=== PATIENT | female | born 1945 | race Hispanic/Latino ===

== ENCOUNTER 2019-03-24 14:11 | Observation (INO) | payer OTHER, MEDICARE ==
[~2019-03-24] VITALS: Ht 157.5 cm; Wt 108.8 kg
[~2019-03-24 14:11] MED LIST: ALEN70TA10 PO; ALPR-410 PO; CIPR-278 PO; CLON0.5T23 PO; RIVA15TA PO; SIMV-43 PO; VENL50TA PO
[2019-03-24 14:55] LABS: BASOPHILS % (AUTO) 0.3 % (0.0-5.0); EOSINOPHILS % (AUTO) 1.8 % (0.0-8.0); HEMATOCRIT 41.3 % (36-48); LYMPHOCYTES % (AUTO) 16.9 % (21.0-51.0); MEAN CORPUSCULAR VOLUME 90.8 fL (79-99); MONOCYTES % (AUTO) 11.7 % (3.0-13.0); NEUTROPHILS % (AUTO) 68.6 % (40.0-77.0); NUCLEATED RED BLOOD CELLS 0.2 % (0.0-0.19); PLATELET COUNT (AUTO) 268 K/uL (130-400); RED BLOOD CELL COUNT(AUTO) 4.55 MIL/uL (4.00-5.50); RED CELL DISTRIBUTION WIDTH 13.8 % (11.0-15.5); WHITE BLOOD COUNT (AUTO) 12.9 K/uL (4.8-10.8)
[2019-03-24 14:57] LABS: CREATININE 0.7 mg/dL (0.5-1.5); POTASSIUM 3.5 mmol/L (3.5-5.1)
[2019-03-24] MEDS ORDERED: ASPIRIN 325MG EC TAB 325 MG TABLET.DR PO ONE (14:57)
[2019-03-24 15:01] LABS: BILIRUBIN,TOTAL 0.6 mg/dL (0.2-1.0); INR 0.93 (0.85-1.15); PARTIAL THROMBOPLASTIN TIME 28.6 SEC (26.3-35.5); PROTHROMBIN TIME 9.8 SEC (9.6-11.6); TOTAL PROTEIN, SERUM 7.2 g/dL (6.0-8.3)
[2019-03-24 15:02] LABS: ABG BASE EXCESS 1.5 mmol/L (-2.0-3.0); ABG HCO3 25.8 mmol/L (21.0-28.0); ABG OXYGEN SATURATION 92.9 % (95.0-99.0); ABG PCO2 40 mmHg (32-45)
[2019-03-24] MEDS ORDERED: IOHEXOL-350 75 ML VIAL IV ONE (15:23)
[2019-03-24] MEDS ORDERED: ACETAMINOPHEN 325 MG TAB PO PRN (18:30)
[2019-03-24] MEDS ORDERED: ONDANSETRON HCL 4 MG/2 ML VIAL IVP PRN (18:30)
[2019-03-24] MEDS ORDERED: SODIUM CHLORIDE 0.9% 10 ML VIAL IVP SCH (18:30)
[2019-03-24] MEDS ORDERED: IPRATROPIUM/ALBUTEROL SULFATE 3 ML SOLUTION IH PRN (18:30)
[2019-03-24] MEDS ORDERED: HYDROCODONE/ACETAMINOPHEN 5/325 MG TAB PO PRN (18:30)
[2019-03-24] MEDS ORDERED: HYDROMORPHONE HCL 0.5 MG/0.5 ML ML IVP PRN (18:30)
[2019-03-24] MEDS ORDERED: FUROSEMIDE 10 MG/ML 4ML VIAL ONE (18:44)
[2019-03-24] MEDS: FUROSEMIDE 10 MG/ML 4ML VIAL IVP SCH (19:00)
[2019-03-24] MEDS ORDERED: POTASSIUM CHLORIDE 20MEQ/100ML 100 ML IV PRN (19:30)
[2019-03-24] MEDS ORDERED: LIDOCAINE HCL-MPF 1% 2ML VIAL IV PRN (19:30)
[2019-03-24] MEDS ORDERED: POTASSIUM CHLORIDE 10% ELIXIR 20 MEQ/15 ML UDCUP PO PRN (19:30)
[2019-03-24 20:20] VITALS: BP 116/75
--- NOTE | 2019-03-24 20:20 | NUR ---
Pt rcd from ER in no distress; a/o x 3, skin warm, dry and intact. LS clear, diminished bilaterally, abdomen soft and nontender. Ambulatoy with minimal assist. IV SL to LAF flushing well. 16 fr f/c draining clear yellow urine. Occ. cough, no other complaints at this time. No family with pt., to bring pt. home meds in am.
[2019-03-24] MEDS: FAMOTIDINE 20MG TAB 20 MG TAB PO SCH (21:15)
[2019-03-24 23:12] VITALS: BP 105/69
[2019-03-25 03:31] VITALS: BP 107/66
[2019-03-25 05:32] LABS: BASOPHILS % (AUTO) 0.3 % (0.0-5.0); EOSINOPHILS % (AUTO) 2.7 % (0.0-8.0); HEMATOCRIT 43.9 % (36-48); LYMPHOCYTES % (AUTO) 18.3 % (21.0-51.0); MEAN CORPUSCULAR HEMOGLOBIN 28.6 pg (27.0-33.0); MEAN CORPUSCULAR HGB CONC 31.4 g/dL (32.0-36.0); MEAN CORPUSCULAR VOLUME 91.1 fL (79-99); MONOCYTES % (AUTO) 10.6 % (3.0-13.0); NEUTROPHILS % (AUTO) 67.5 % (40.0-77.0); PLATELET COUNT (AUTO) 277 K/uL (130-400); RED BLOOD CELL COUNT(AUTO) 4.82 MIL/uL (4.00-5.50); RED CELL DISTRIBUTION WIDTH 13.9 % (11.0-15.5); WHITE BLOOD COUNT (AUTO) 12.4 K/uL (4.8-10.8)
[2019-03-25 06:25] LABS: BILIRUBIN,DIRECT 0.1 mg/dL (0.0-0.3); BILIRUBIN,TOTAL 0.7 mg/dL (0.2-1.0); CREATININE 0.9 mg/dL (0.5-1.5); MAGNESIUM 1.9 mg/dL (1.80-2.40); POTASSIUM 3.4 mmol/L (3.5-5.1); TOTAL PROTEIN, SERUM 7.5 g/dL (6.0-8.3)
[2019-03-25] MEDS: FUROSEMIDE 10 MG/ML 4ML VIAL IVP SCH ×2 (06:45→18:20)
[2019-03-25 07:49] VITALS: BP 116/75
[2019-03-25] MEDS: ENOXAPARIN SODIUM 30 MG/0.3 ML SQ SCH (09:50)
[2019-03-25] MEDS: FAMOTIDINE 20MG TAB 20 MG TAB PO SCH ×2 (09:50→20:30)
[2019-03-25] MEDS ORDERED: SIMV-46 PO (11:19)
[2019-03-25] MEDS ORDERED: CETI10CA5 PO (11:19)
[2019-03-25 11:44] VITALS: BP 106/71
--- NOTE | 2019-03-25 17:15 | NUR ---
MET W PT FOR DC PLANNING PT IS AAOX3, STATES LIVES ALONE, VERIFIED NUBMERS ON FACE SHEET, [place] ON FACE SHEET BUT STATES WANTS JAMEE DENNISON HER PROVIDER CALLED FOR TRANPORT HOME. DOES NOT KNOW HARRISON'S NUMBER BUT STATES SHE WILL BE IN IN AM. PT USES A WHEEL STEFANI MMOSTLY AND HAS A CHAIR LIFT TO HELP WITH TRANSFERS. PT IS MOBIDLY OB[place]. STATES HOME SAFE AND ACCESSIBLE. PRIVDER < 20 HRS PER WEEK AND WANTS MORE. WILL NEED TO FOLLOW UP WITH THE PROVIDER AGENCY ON DISCHARGE. CM TO FOLLOW IN AM FOR FURTHER DC NEEDS Addendum: 03/25/19 at 1905 by EDER CEE RN CM Amended: Links added.
[2019-03-25 17:19] VITALS: BP 128/75
[2019-03-25] MEDS: POTASSIUM CHLORIDE 20 MEQ ERTAB PO PRN (18:22)
[2019-03-25 19:54] VITALS: BP 119/66
[2019-03-25] MEDS ORDERED: ALPRAZOLAM 0.5 MG TABLET PO SCH (21:00)
[2019-03-25] MEDS ORDERED: SIMVASTATIN 20 MG TABLET PO SCH (21:00)
[2019-03-25 23:46] VITALS: BP 123/82
[2019-03-26] MEDS: POTASSIUM CHLORIDE 20 MEQ ERTAB PO PRN ×4 (00:30→12:21)
[2019-03-26 04:00] VITALS: BP 121/79
[2019-03-26 05:49] LABS: BASOPHILS % (AUTO) 0.4 % (0.0-5.0); EOSINOPHILS % (AUTO) 3.3 % (0.0-8.0); HEMATOCRIT 45.1 % (36-48); LYMPHOCYTES % (AUTO) 17.9 % (21.0-51.0); MEAN CORPUSCULAR HEMOGLOBIN 29.3 pg (27.0-33.0); MEAN CORPUSCULAR HGB CONC 32.4 g/dL (32.0-36.0); MEAN CORPUSCULAR VOLUME 90.4 fL (79-99); MONOCYTES % (AUTO) 10.2 % (3.0-13.0); NEUTROPHILS % (AUTO) 67.6 % (40.0-77.0); PLATELET COUNT (AUTO) 310 K/uL (130-400); RED BLOOD CELL COUNT(AUTO) 4.99 MIL/uL (4.00-5.50); RED CELL DISTRIBUTION WIDTH 13.7 % (11.0-15.5); WHITE BLOOD COUNT (AUTO) 13.2 K/uL (4.8-10.8)
[2019-03-26 06:12] LABS: CREATININE 0.9 mg/dL (0.5-1.5); MAGNESIUM 1.8 mg/dL (1.80-2.40); POTASSIUM 3.3 mmol/L (3.5-5.1)
[2019-03-26] MEDS: FUROSEMIDE 10 MG/ML 4ML VIAL IVP SCH (06:24)
[2019-03-26 08:00] VITALS: BP 111/83
[2019-03-26] MEDS ORDERED: DOXYCYCLINE 100MG+NS 250ML 250 ML IV SCH (09:00)
[2019-03-26] MEDS ORDERED: CETIRIZINE HCL 5 MG TABLET PO SCH (09:00)
[2019-03-26] MEDS ORDERED: VENLAFAXINE HCL 50 MG TABLET PO SCH (09:00)
[2019-03-26] MEDS ORDERED: CEFEPIME HCL 2 GM VIAL IVP SCH (09:00)
[2019-03-26] MEDS: FAMOTIDINE 20MG TAB 20 MG TAB PO SCH (10:24)
[2019-03-26] MEDS: ENOXAPARIN SODIUM 30 MG/0.3 ML SQ SCH (10:29)
--- NOTE | 2019-03-26 12:01 | NUR ---
DISCHARGE NOTE DISCHARGE INSTRUCTIONS GIVEN TO PATIENT, MADE AWARE OF NEED TO FOLLOW UP WITH PCP AND BENCHMARK. PROVIDED WITH NUMBERS TO MAKE APPOINTMENT. PROVIDED PRINTED RX FOR DOXYCYCLINE. PATIENT AT THIS TIME DENIES ANY PAIN OR SOB. NO SIGNS AND SYMPTOMS OF ACUTE DISTRESS NOTED. RICHARDSON CATHETER REMOVED PENDING TO VOID. IV AND TELE REMOVED. PATIENT AWAITING FOR FAMILY MEMBER TO ARRIVE TO TRANSPORT HOME.
== END 2019-03-26 12:45 | disposition home or self-care (01) ==
LOC: EDH 14:11 → EDHIP 17:05 → 4DH 18:59
PROVIDERS: ADMIT Internal Medicine Critical Care Medicine; ATTEND Internal Medicine Critical Care Medicine
DX: I11.0 Hypertensive heart disease with heart failure (principal); I50.33 Acute on chronic diastolic (congestive) heart failure; R06.03 Acute respiratory distress; E78.5 Hyperlipidemia, unspecified; F41.9 Anxiety disorder, unspecified; F32.9 Major depressive disorder, single episode, unspecified; E66.9 Obesity, unspecified; Z79.899 Other long term (current) drug therapy; Z79.01 Long term (current) use of anticoagulants; Z68.41 Body mass index [BMI] 40.0-44.9, adult
CPT/HCPCS: 36415 ×3; 36600; 71045 ×3; 71275; 80048 ×2; 80053; 80076; 82550; 82803; 83735 ×2; 83880; 84145; 84484; 85025 ×3; 85610; 85730; 93005; 93306; 94664; 96372 ×2; 96374; 96375; 96376 ×2; 99284; G0378 ×44; J0692; J1650 ×2; J1940 ×4; J3490; Q9967

== ENCOUNTER → 2019-04-28 | Outpatient (CLI) | payer OTHER, MEDICARE ==
[~2019-04-28] VITALS: Ht 154.9 cm; Wt 112.5 kg
[~2019-04-28] MED LIST changes: +CETI10CA5 PO; -CIPR-278 PO; -CLON0.5T23 PO; +REGADENOSON 0.4 MG/5 ML PF SYG IVP SCH; -RIVA15TA PO; -SIMV-43 PO; +SIMV-46 PO
== END | disposition home or self-care (01) ==
LOC: SHCH 07:40
PROVIDERS: ATTEND Internal Medicine Cardiovascular Disease
DX: R07.9 Chest pain, unspecified (principal); R06.00 Dyspnea, unspecified
CPT/HCPCS: 78452; 93017; 96374; A9500 ×2; J2785